=== PATIENT | female | born 1980 | race American Indian/Alaskan Native ===

== ENCOUNTER 2017-01-24 09:25 | Emergency (ER) | payer OTHER, BC ==
[2017-01-24 09:34] VITALS: BMI 26.6
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
[2017-01-24 09:51] VITALS: RESP 18; TEMP 98.3
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
[2017-01-24 12:01] VITALS: BP 136/75; PULSE 86; O2SAT 98
== END 2017-01-24 12:01 | disposition home or self-care (01) ==
LOC: C.ER 09:25 → SUPCPDRO 09:25 → C.ER 12:01
DX: M54.5 Low back pain (principal); R51 Headache; V43.52XA Car driver injured in collision with other type car in traffic accident, initial encounter; Y92.410 Unspecified street and highway as the place of occurrence of the external cause